=== PATIENT | male | born 1930 | race Caucasian/White ===

== ENCOUNTER 2016-06-25 10:41 | Inpatient (IN) | payer MEDICARE, BC ==
[~2016-06-25] VITALS: Ht 167.6 cm; Wt 69.6 kg
[2016-06-25] MEDS ORDERED: SODIUM CHLORIDE 0.9% 1,000 ML ONE (11:26)
[2016-06-25] MEDS ORDERED: ONDANSETRON 4 MG VIAL IV PRN (15:20)
[2016-06-25] MEDS ORDERED: ALU/MAG/SIM 30 ML UDC PO PRN (15:20)
[2016-06-25] MEDS ORDERED: MAG HYDROX 30 ML UDC PO PRN (15:20)
[2016-06-25 17:03] VITALS: BP_SYST 139; BP_SYST 140; RESP 16; TEMP 98.2
[2016-06-25 17:14] VITALS: RESP 22
[2016-06-25] MEDS: PANTOPRAZOLE 40 MG TAB PO SCH (18:35)
[2016-06-25] MEDS: ENOXAPARIN 40 MG/0.4 ML SYR SUBQ SCH (18:36)
[2016-06-25] MEDS: SODIUM CHLORIDE 0.9% 1,000 ML IV SCH (18:57)
[2016-06-25 20:05] VITALS: BP_SYST 143; RESP 18; TEMP 98.1
[2016-06-25] MEDS ORDERED: AVINZA 30 MG PO SCH (21:00)
[2016-06-25] MEDS: DOCUSATE SOD 100 MG CAP PO SCH (22:47)
[2016-06-25] MEDS: MORPHINE ER 30 MG TAB PO SCH (22:48)
[2016-06-25] MEDS: TOPIRAMATE 25 MG TAB PO SCH (22:48)
[2016-06-25] MEDS: DONEPEZIL HCL 5 MG TAB PO SCH (22:48)
[2016-06-26 00:14] VITALS: BP_SYST 121; RESP 18; TEMP 98.3
[2016-06-26 03:25] VITALS: BP_SYST 159; RESP 18; TEMP 98.2
[2016-06-26] MEDS: PANTOPRAZOLE 40 MG TAB PO SCH (06:52)
[2016-06-26] MEDS: LEVOTHYROXINE 0.075 MG TAB PO SCH (06:52)
[2016-06-26] MEDS ORDERED: **NOTE TO NURSE XX SCH (08:00)
[2016-06-26 08:20] VITALS: BP_SYST 122; RESP 18; TEMP 97.8
[2016-06-26] MEDS ORDERED: *PINK BRACELET XX ONE (08:25)
[2016-06-26] MEDS ORDERED: AVINZA PO SCH (09:00)
[2016-06-26] MEDS ORDERED: MOVANTIK 25 MG PO SCH (09:00)
[2016-06-26] MEDS ORDERED: METOPROLOL XL 50 MG TAB PO SCH (09:00)
[2016-06-26] MEDS: CHOLECALCIFEROL 5,000 UNITS CAP PO SCH (09:37)
[2016-06-26] MEDS: METOPROLOL XL 25 MG TAB PO SCH (09:37)
[2016-06-26] MEDS: ASPIRIN 81 MG CHEW TAB PO SCH (09:37)
[2016-06-26] MEDS: MOVANTIK 25 MG PO SCH (09:37)
[2016-06-26] MEDS: VENLAFAXINE XR 150 MG CAP PO SCH (09:37)
[2016-06-26] MEDS: DULoxetine 30 MG CAP PO SCH (09:37)
[2016-06-26] MEDS: DOCUSATE SOD 100 MG CAP PO SCH ×2 (09:37→22:02)
[2016-06-26] MEDS: ENOXAPARIN 40 MG/0.4 ML SYR SUBQ SCH (09:38)
[2016-06-26] MEDS: MORPHINE 60 MG PO SCH ×2 (09:39→22:12)
[2016-06-26] MEDS: SODIUM CHLORIDE 0.9% 1,000 ML IV SCH (10:37)
[2016-06-26 11:23] VITALS: BP_SYST 134; RESP 18; TEMP 98.5
[2016-06-26 15:57] VITALS: BP_SYST 152; RESP 18; TEMP 98.3
[2016-06-26 19:45] VITALS: BP_SYST 163; RESP 20; TEMP 98.1
[2016-06-26] MEDS: *HOME MEDS IN MED CART XX SCH (20:00)
[2016-06-26] MEDS: DONEPEZIL HCL 5 MG TAB PO SCH (22:01)
[2016-06-26] MEDS: TOPIRAMATE 25 MG TAB PO SCH (22:02)
[2016-06-26] MEDS: MORPHINE ER 30 MG TAB PO SCH (22:29)
[2016-06-27] VITALS (7 sets, daily range): BP systolic 134–159; RESP 18; TEMP 97.8–98.4
[2016-06-27] MEDS: PANTOPRAZOLE 40 MG TAB PO SCH (06:03)
[2016-06-27] MEDS: LEVOTHYROXINE 0.075 MG TAB PO SCH (06:03)
[2016-06-27] MEDS: *HOME MEDS IN MED CART XX SCH ×2 (09:26→19:49)
[2016-06-27] MEDS: CHOLECALCIFEROL 5,000 UNITS CAP PO SCH (09:27)
[2016-06-27] MEDS: VENLAFAXINE XR 150 MG CAP PO SCH (09:27)
[2016-06-27] MEDS: MOVANTIK 25 MG PO SCH (09:27)
[2016-06-27] MEDS: ASPIRIN 81 MG CHEW TAB PO SCH (09:27)
[2016-06-27] MEDS: DOCUSATE SOD 100 MG CAP PO SCH ×2 (09:27→20:54)
[2016-06-27] MEDS: METOPROLOL XL 25 MG TAB PO SCH (09:27)
[2016-06-27] MEDS: DULoxetine 30 MG CAP PO SCH (09:27)
[2016-06-27] MEDS: ENOXAPARIN 40 MG/0.4 ML SYR SUBQ SCH (09:28)
[2016-06-27] MEDS: MORPHINE 60 MG PO SCH (09:30)
[2016-06-27] MEDS: SODIUM CHLORIDE 0.9% 1,000 ML IV SCH (15:51)
[2016-06-27] MEDS: TOPIRAMATE 25 MG TAB PO SCH (20:54)
[2016-06-27] MEDS: MORPHINE ER 30 MG TAB PO SCH (20:54)
[2016-06-27] MEDS: DONEPEZIL HCL 5 MG TAB PO SCH (20:56)
[2016-06-28 05:18] VITALS: BP_SYST 136; RESP 18; TEMP 97.8
[2016-06-28] MEDS: PANTOPRAZOLE 40 MG TAB PO SCH (06:05)
[2016-06-28] MEDS: LEVOTHYROXINE 0.075 MG TAB PO SCH (06:05)
[2016-06-28 07:43] VITALS: BP_SYST 144; RESP 18; TEMP 94.5
[2016-06-28] MEDS: *HOME MEDS IN MED CART XX SCH ×2 (08:00→18:34)
[2016-06-28] MEDS: MOVANTIK 25 MG PO SCH (09:47)
[2016-06-28] MEDS: VENLAFAXINE XR 150 MG CAP PO SCH (09:48)
[2016-06-28] MEDS: METOPROLOL XL 25 MG TAB PO SCH (09:48)
[2016-06-28] MEDS: CHOLECALCIFEROL 5,000 UNITS CAP PO SCH (09:48)
[2016-06-28] MEDS: ENOXAPARIN 40 MG/0.4 ML SYR SUBQ SCH (09:48)
[2016-06-28] MEDS: MORPHINE 60 MG PO SCH (09:49)
[2016-06-28] MEDS: DULoxetine 30 MG CAP PO SCH (09:49)
[2016-06-28] MEDS: DOCUSATE SOD 100 MG CAP PO SCH ×2 (09:50→20:29)
[2016-06-28] MEDS: ASPIRIN 81 MG CHEW TAB PO SCH (09:50)
[2016-06-28] MEDS: Furosemide 40 MG/4 ML VIAL IV SCH ×2 (11:21→17:52)
[2016-06-28] MEDS: KCL CR 8 MEQ TAB PO SCH ×2 (11:22→20:29)
[2016-06-28 11:29] VITALS: BP_SYST 128; RESP 20; TEMP 97.6
[2016-06-28 16:06] VITALS: BP_SYST 131; RESP 18; TEMP 97.5
[2016-06-28 20:10] VITALS: BP_SYST 116; RESP 20; TEMP 97.8
[2016-06-28] MEDS: TOPIRAMATE 25 MG TAB PO SCH (20:29)
[2016-06-28] MEDS: DONEPEZIL HCL 5 MG TAB PO SCH (20:29)
[2016-06-28] MEDS: MORPHINE ER 30 MG TAB PO SCH (20:30)
[2016-06-28 23:27] VITALS: BP_SYST 133; RESP 16; TEMP 98.3
[2016-06-29 03:24] VITALS: BP_SYST 151; RESP 20; TEMP 98.1
[2016-06-29] MEDS: PANTOPRAZOLE 40 MG TAB PO SCH (06:13)
[2016-06-29] MEDS: LEVOTHYROXINE 0.075 MG TAB PO SCH (06:13)
[2016-06-29 07:22] VITALS: BP_SYST 116; RESP 20; TEMP 97.8
[2016-06-29] MEDS: *HOME MEDS IN MED CART XX SCH ×2 (08:00→20:00)
[2016-06-29] MEDS: MOVANTIK 25 MG PO SCH (09:15)
[2016-06-29] MEDS: DULoxetine 30 MG CAP PO SCH (09:17)
[2016-06-29] MEDS: DOCUSATE SOD 100 MG CAP PO SCH ×2 (09:17→20:23)
[2016-06-29] MEDS: ASPIRIN 81 MG CHEW TAB PO SCH (09:17)
[2016-06-29] MEDS: Furosemide 40 MG/4 ML VIAL IV SCH ×2 (09:17→17:18)
[2016-06-29] MEDS: VENLAFAXINE XR 150 MG CAP PO SCH (09:17)
[2016-06-29] MEDS: KCL CR 8 MEQ TAB PO SCH ×2 (09:18→20:23)
[2016-06-29] MEDS: METOPROLOL XL 25 MG TAB PO SCH (09:18)
[2016-06-29] MEDS: CHOLECALCIFEROL 5,000 UNITS CAP PO SCH (09:18)
[2016-06-29] MEDS: ENOXAPARIN 40 MG/0.4 ML SYR SUBQ SCH (09:19)
[2016-06-29] MEDS: MORPHINE 60 MG PO SCH (09:30)
[2016-06-29 11:12] VITALS: BP_SYST 121; RESP 16; TEMP 97.5
[2016-06-29 15:24] VITALS: BP_SYST 125; RESP 20; TEMP 97.4
[2016-06-29 19:29] VITALS: BP_SYST 119; RESP 18; TEMP 97.4
[2016-06-29] MEDS: DONEPEZIL HCL 5 MG TAB PO SCH (20:23)
[2016-06-29] MEDS: MORPHINE ER 30 MG TAB PO SCH (20:24)
[2016-06-29] MEDS: TOPIRAMATE 25 MG TAB PO SCH (20:25)
[2016-06-30] VITALS (7 sets, daily range): BP systolic 118–135; RESP 18–20; TEMP 97.1–98.1
[2016-06-30] MEDS: LEVOTHYROXINE 0.075 MG TAB PO SCH (06:49)
[2016-06-30] MEDS: PANTOPRAZOLE 40 MG TAB PO SCH (06:49)
[2016-06-30] MEDS: *HOME MEDS IN MED CART XX SCH ×2 (07:29→19:31)
[2016-06-30] MEDS: MORPHINE 60 MG PO SCH ×2 (08:30→14:52)
[2016-06-30] MEDS: VENLAFAXINE XR 150 MG CAP PO SCH (08:30)
[2016-06-30] MEDS: DULoxetine 30 MG CAP PO SCH (08:30)
[2016-06-30] MEDS: CHOLECALCIFEROL 5,000 UNITS CAP PO SCH (08:30)
[2016-06-30] MEDS: ENOXAPARIN 40 MG/0.4 ML SYR SUBQ SCH (08:30)
[2016-06-30] MEDS: ASPIRIN 81 MG CHEW TAB PO SCH (08:30)
[2016-06-30] MEDS: MOVANTIK 25 MG PO SCH (08:30)
[2016-06-30] MEDS: DOCUSATE SOD 100 MG CAP PO SCH ×2 (08:30→20:25)
[2016-06-30] MEDS: KCL CR 8 MEQ TAB PO SCH ×2 (08:30→20:24)
[2016-06-30] MEDS: Furosemide 40 MG/4 ML VIAL IV SCH ×2 (08:30→18:16)
[2016-06-30] MEDS: METOPROLOL XL 25 MG TAB PO SCH (08:30)
[2016-06-30] MEDS: TOPIRAMATE 25 MG TAB PO SCH (20:24)
[2016-06-30] MEDS: MORPHINE ER 30 MG TAB PO SCH (20:25)
[2016-06-30] MEDS: DONEPEZIL HCL 5 MG TAB PO SCH (20:25)
[2016-07-01 04:47] VITALS: BP_SYST 141; TEMP 97.8
[2016-07-01] MEDS: LEVOTHYROXINE 0.075 MG TAB PO SCH (06:40)
[2016-07-01] MEDS: PANTOPRAZOLE 40 MG TAB PO SCH (06:40)
[2016-07-01 07:48] VITALS: BP_SYST 129; RESP 16; TEMP 97.7
[2016-07-01] MEDS: *HOME MEDS IN MED CART XX SCH ×2 (08:00→20:00)
[2016-07-01] MEDS: Furosemide 40 MG/4 ML VIAL IV SCH (08:26)
[2016-07-01] MEDS: MOVANTIK 25 MG PO SCH (08:26)
[2016-07-01] MEDS: DULoxetine 30 MG CAP PO SCH (08:27)
[2016-07-01] MEDS: ENOXAPARIN 40 MG/0.4 ML SYR SUBQ SCH (08:27)
[2016-07-01] MEDS: CHOLECALCIFEROL 5,000 UNITS CAP PO SCH (08:27)
[2016-07-01] MEDS: VENLAFAXINE XR 150 MG CAP PO SCH (08:27)
[2016-07-01] MEDS: ASPIRIN 81 MG CHEW TAB PO SCH (08:28)
[2016-07-01] MEDS: MORPHINE 60 MG PO SCH (08:28)
[2016-07-01] MEDS: DOCUSATE SOD 100 MG CAP PO SCH ×2 (08:29→20:26)
[2016-07-01] MEDS: METOPROLOL XL 25 MG TAB PO SCH (08:29)
[2016-07-01] MEDS: KCL CR 8 MEQ TAB PO SCH (08:29)
[2016-07-01 11:07] VITALS: BP_SYST 135; RESP 16; TEMP 98.1
[2016-07-01] MEDS: LISINOPRIL 2.5 MG TAB PO SCH (13:14)
[2016-07-01] MEDS ORDERED: TOLVAPTAN 15 MG TAB PO SCH (14:05)
[2016-07-01] MEDS: SAMSCA PO SCH (15:28)
[2016-07-01 15:31] VITALS: BP_SYST 141; RESP 16; TEMP 97.6
[2016-07-01] MEDS: ACETAMINOPHEN 325 MG TAB PO PRN (17:34)
[2016-07-01 19:55] VITALS: BP_SYST 120; RESP 20; TEMP 98.1
[2016-07-01] MEDS: DONEPEZIL HCL 5 MG TAB PO SCH (20:25)
[2016-07-01] MEDS: TOPIRAMATE 25 MG TAB PO SCH (20:25)
[2016-07-01] MEDS: MORPHINE ER 30 MG TAB PO SCH (20:26)
[2016-07-01 22:37] VITALS: BP_SYST 116; RESP 20; TEMP 97.7
[2016-07-02 03:04] VITALS: BP_SYST 118; RESP 16; TEMP 97.2
[2016-07-02] MEDS: LEVOTHYROXINE 0.075 MG TAB PO SCH (06:38)
[2016-07-02] MEDS: PANTOPRAZOLE 40 MG TAB PO SCH (06:38)
[2016-07-02 07:18] VITALS: BP_SYST 128; RESP 16; TEMP 97.8
[2016-07-02] MEDS: *HOME MEDS IN MED CART XX SCH ×2 (08:47→21:40)
[2016-07-02] MEDS: MOVANTIK 25 MG PO SCH (08:48)
[2016-07-02] MEDS: MORPHINE 60 MG PO SCH (08:48)
[2016-07-02] MEDS: DOCUSATE SOD 100 MG CAP PO SCH ×2 (08:49→21:35)
[2016-07-02] MEDS: ASPIRIN 81 MG CHEW TAB PO SCH (08:49)
[2016-07-02] MEDS: VENLAFAXINE XR 150 MG CAP PO SCH (08:50)
[2016-07-02] MEDS: DULoxetine 30 MG CAP PO SCH (08:50)
[2016-07-02] MEDS: METOPROLOL XL 25 MG TAB PO SCH (08:51)
[2016-07-02] MEDS: LISINOPRIL 2.5 MG TAB PO SCH (08:51)
[2016-07-02] MEDS: CHOLECALCIFEROL 5,000 UNITS CAP PO SCH (08:51)
[2016-07-02] MEDS ORDERED: MISSING DOSE XX ONE (08:55)
[2016-07-02] MEDS: SAMSCA PO SCH (10:24)
[2016-07-02 11:05] VITALS: BP_SYST 120; RESP 20; TEMP 98.3
[2016-07-02 14:45] VITALS: BP_SYST 134; RESP 16; TEMP 98.1
[2016-07-02] MEDS: ACETAMINOPHEN 325 MG TAB PO PRN (16:01)
[2016-07-02] MEDS: ENOXAPARIN 30 MG/0.3 ML SYR SUBQ SCH (18:59)
[2016-07-02 19:24] VITALS: BP_SYST 158; RESP 18; TEMP 97.5
[2016-07-02] MEDS: MEMANTINE 5 MG TAB PO SCH (21:36)
[2016-07-02] MEDS: MORPHINE ER 30 MG TAB PO SCH (21:36)
[2016-07-02] MEDS: DONEPEZIL HCL 5 MG TAB PO SCH (21:36)
[2016-07-02 23:10] VITALS: BP_SYST 124; RESP 18; TEMP 97.5
[2016-07-03 03:30] VITALS: BP_SYST 155; RESP 18; TEMP 98.1
[2016-07-03] MEDS: PANTOPRAZOLE 40 MG TAB PO SCH (06:41)
[2016-07-03] MEDS: LEVOTHYROXINE 0.075 MG TAB PO SCH (06:41)
[2016-07-03 07:44] VITALS: BP_SYST 126; RESP 18; TEMP 98.2
[2016-07-03] MEDS: *HOME MEDS IN MED CART XX SCH ×2 (07:47→20:00)
[2016-07-03] MEDS ORDERED: SALINE FLUSH 10 ML FLUSH PRN (07:50)
[2016-07-03 08:15] VITALS: Ht 167.6 cm; Wt 69.6 kg
[2016-07-03] MEDS: ENOXAPARIN 30 MG/0.3 ML SYR SUBQ SCH (09:55)
[2016-07-03] MEDS: Furosemide 40 MG TAB PO SCH (09:56)
[2016-07-03] MEDS: ASPIRIN 81 MG CHEW TAB PO SCH (09:56)
[2016-07-03] MEDS: DOCUSATE SOD 100 MG CAP PO SCH ×2 (09:56→20:43)
[2016-07-03] MEDS: METOPROLOL XL 25 MG TAB PO SCH (09:56)
[2016-07-03] MEDS: DULoxetine 30 MG CAP PO SCH (09:57)
[2016-07-03] MEDS: VENLAFAXINE XR 150 MG CAP PO SCH (09:57)
[2016-07-03] MEDS: CHOLECALCIFEROL 5,000 UNITS CAP PO SCH (09:57)
[2016-07-03] MEDS: LISINOPRIL 5 MG TAB PO SCH (09:57)
[2016-07-03] MEDS: MORPHINE ER 30 MG TAB PO SCH ×2 (09:57→20:44)
[2016-07-03] MEDS: SAMSCA PO SCH (09:57)
[2016-07-03] MEDS: SALINE FLUSH 10 ML FLUSH SCH ×2 (09:58→20:48)
[2016-07-03] MEDS: MOVANTIK 25 MG PO SCH (09:58)
[2016-07-03 11:21] VITALS: BP_SYST 118; RESP 18; TEMP 98.4
[2016-07-03 16:49] VITALS: BP_SYST 156; RESP 18; TEMP 98.1
[2016-07-03 19:32] VITALS: BP_SYST 124; RESP 18; TEMP 97.6
[2016-07-03] MEDS: DONEPEZIL HCL 5 MG TAB PO SCH (20:44)
[2016-07-03] MEDS: MEMANTINE 5 MG TAB PO SCH (20:44)
[2016-07-03 23:07] VITALS: BP_SYST 117; RESP 18; TEMP 97.8
[2016-07-04 03:40] VITALS: BP_SYST 123; RESP 18; TEMP 97.7
[2016-07-04] MEDS: PANTOPRAZOLE 40 MG TAB PO SCH (06:59)
[2016-07-04] MEDS: LEVOTHYROXINE 0.075 MG TAB PO SCH (06:59)
[2016-07-04] MEDS: *HOME MEDS IN MED CART XX SCH ×2 (07:17→12:56)
[2016-07-04 07:56] VITALS: BP_SYST 148; RESP 16; TEMP 97.8
[2016-07-04] MEDS: SALINE FLUSH 10 ML FLUSH SCH (09:33)
[2016-07-04] MEDS: MOVANTIK 25 MG PO SCH (09:33)
[2016-07-04] MEDS: ENOXAPARIN 30 MG/0.3 ML SYR SUBQ SCH (09:34)
[2016-07-04] MEDS: CHOLECALCIFEROL 5,000 UNITS CAP PO SCH (09:34)
[2016-07-04] MEDS: DULoxetine 30 MG CAP PO SCH (09:34)
[2016-07-04] MEDS: VENLAFAXINE XR 150 MG CAP PO SCH (09:34)
[2016-07-04] MEDS: METOPROLOL XL 25 MG TAB PO SCH (09:35)
[2016-07-04] MEDS: LISINOPRIL 5 MG TAB PO SCH (09:35)
[2016-07-04] MEDS: MORPHINE ER 30 MG TAB PO SCH (09:35)
[2016-07-04] MEDS: Furosemide 40 MG TAB PO SCH (09:35)
[2016-07-04] MEDS: DOCUSATE SOD 100 MG CAP PO SCH (09:35)
[2016-07-04] MEDS: ASPIRIN 81 MG CHEW TAB PO SCH (09:35)
[2016-07-04 10:53] VITALS: BP_SYST 158; RESP 16; TEMP 97.8
[2016-07-04 12:50] VITALS: BP_SYST 158; RESP 16; TEMP 97.8
== END 2016-07-04 14:00 | DRG 640 ==
LOC: ENRESERVDT → ENRESERVTM → ER 10:41 → ENPENDDIS 15:36 → EMR 15:36 → 4NT 16:48
PROVIDERS: ADMIT Internal Medicine; ATTEND Internal Medicine
CPT/HCPCS: 36600; 70450; 71010; 80048; 80053; 81001; 82140; 82553; 82803; 83880; 84439; 84443; 84484; 85025; 87040; 93005; 93306; 94799; 96360